=== PATIENT | female | born 1975 | race Caucasian/White ===

== ENCOUNTER → 2016-11-16 | Outpatient (CLI) | payer OTHER ==
--- OUTSIDE RECORDS SUMMARY | 2016-11-16 08:04 | XMS REPORT ---
Author BELA [facility] eClinicalWorks Address Unknown Phone Unavailable Care Team Providers Care Linseed Oil Order Filler Name Role Phone BELA MAGUIRE CP Unavailable Allergies, Adverse Reactions, Alerts Substance Reaction Event Type Morphine Info Not Available Drug Allergy Problems Problem Type Condition Code Onset Dates Condition Status Problem Obesity (BMI 30.0-34.9) E66.9 Active Assessment Pain of left heel M79.672 Active Problem Pain of left heel M79.672 Active Assessment Screening cholesterol level Z13.220 Active Assessment Obesity (BMI 30.0-34.9) E66.9 Active Assessment Diabetes mellitus screening Z13.1 Active Assessment Thyroid disorder screen Z13.29 Active Medications No Known Medications Procedures Procedure Coding System Code Date Office Visit, Est Pt., Level 3 CPT-4 47974 May 15, 2016 Vital Signs Date/Time: May 15, 2016 Cardiac Monitoring Heart Rate 73 bpm Weight 220.5 lbs Height 68.5 in Blood Pressure Diastolic 66 mmHg Blood Pressure Systolic 108 mmHg Results No Known Results Summary Purpose eClinicalWorks Submission
--- NOTE | 2016-11-16 13:41 | Diagnostic Imaging Report ---
EXAM: Diagnostic left mammogram. The current study was also evaluated with a Computer Aided Detection (CAD) system. INDICATION: Followup exam. COMPARISON: 05/01/2016, 05/17/2016. FINDINGS: The baseline screening mammogram performed on 05/01/16 noted an asymmetric area of increased density in the central aspect of the breast. This was only seen on the CC view and not on the MLO view. The subsequent diagnostic mammogram and ultrasound exams of 05/17/2016 failed to show any sign of malignancy. The area question was felt to be secondary to fibroglandular tissue alone. On this exam, the appearance of the left breast is unchanged when compared to the previous studies. The asymmetric density seen in the midportion of breast on the craniocaudad view is again evident. Most likely this is due to fibroglandular tissue alone. The overall appearance of the left breast is otherwise stable. No new abnormality has developed. IMPRESSION: 1. The appearance of the left breast is stable when compared to the prior exam. There is no evidence for malignancy. 2. The patient should have her annual bilateral screening mammogram on schedule in April of this year. ACR BI-RADS Category 1: Negative. Result letter will be mailed to the patient. Note: At least 10% of breast cancer is not imaged by mammography. Dictated by: Dictated on workstation # [id number]
== END ==
LOC: RAD 08:00
PROVIDERS: ATTEND Nurse Practitioner Family
DX: R92.2 Inconclusive mammogram (principal); R92.8 Other abnormal and inconclusive findings on diagnostic imaging of breast